=== PATIENT | female | born 1940 | race Caucasian/White ===

== ENCOUNTER 2020-11-13 11:10 | Observation (INO) | payer OTHER ==
--- OUTSIDE RECORDS SUMMARY | 2020-11-13 11:17 | XMS REPORT | Continuity of Care Document ---
:1940 Author Organization [facility] t Address [address] [place] [address] Care Team Providers Name Role Phone Martin Sears MD Primary Care Physician Problems Condition Condition Condition Status Onset Resolution Last Treating Co mments Source Name Details Category Date Date Treatment Clinician Date Status Status Disease Active [place] post total post total 7-03 Me thodi replacemen replacemen 00:00: st t of right t of right 00 hip hip Anemia Anemia Disease Active [place] associated associated 4-11 Me thodi with acute with acute 00:00: st blood loss blood loss 00 Primary Primary Disease Active [place] osteoarthr osteoarthr 3-23 Me thodi itis of itis of 00:00: st right hip right hip 00 Primary Primary Disease Active [place] osteoarthr osteoarthr 3-23 Me thodi itis of itis of 00:00: st right knee right knee 00 Right hip Right hip Disease Active Mia ston pain pain 2-19 Methodi 00:00: st 00 Chronic Chronic Disease Active [place] pain of pain of 2-19 Methodi right knee right knee 00:00: st 00 Cataract Cataract Disease Active [place] on 2-24 Methodi 00:00: st 00 Gastroesop Gastroesop Disease Active [place] hageal hageal 2-24 Methodi reflux reflux 00:00: st disease disease 00 Osteoporos Osteoporos Disease Active Overview : [place] is is 2-24 She Methodi 00:00: reports st 00 last dxa was about 5 years ago Edema of Edema of Disease Active [place] lower lower 2-24 Methodi extremity extremity 00:00: st 00 Vertigo Vertigo Disease Active [place] 9-04 Methodi 00:00: st 00 Hyperlipem Hyperlipem Disease Active H ming ia ia 04-11 Methodi 00:00: st Obstructiv Obstructiv Disease Active H ming e sleep e sleep 04-11 Methodi apnea apnea 00:00: st syndrome syndrome 00 Hearing Hearing Disease Active [place] loss loss 04-11 Methodi 00:00: st Essential Essential Disease Active Mia ston hypertensi hypertensi 04-11 Me thodi on on 00:00: st 00 Allergic Allergic Disease Active [place] rhinitis rhinitis 04-11 Method i 00:00: st 00 Ulcerative Ulcerative Disease Active H ming colitis colitis 04-11 Methodi 00:00: st 00 Allergies, Adverse Reactions, Alerts Allergy Allergy Status Severity Reaction(s) Onset Inactive Treating Comm ents Source Name Type Date Date Clinician Nazia Calvin Active Other (See vomiting H ming ty to Comments) 224 Methodi adverse 00:00: st reaction 00 s to drug Family History Family Member Diagnosis Comments Start Date Stop Date Source Natural father Heart disease [facility] Natural mother Cancer [facility] Social History Social Habit Start Date Stop Date Quantity Comments Source Sex Assigned At [facility] Tobacco use and 2018-07-02 2018-07-02 [facility]00 00:00:00 Alcohol intake 2018-07-02 2018-07-02 [facility] non-drinker of alcohol (finding) Tobacco Comment 2018-01-28 2018-01-28 smoked only for [facility] Jainism 00:00:00 00:00:00 1 year at younger age Smoking Status Start Date Stop Date Source Former smoker 2018-07-02 00:00:00 2018-07-02 00:00:00 [facility] Medications Ordered Filled Start Stop Current Ordering Indication Dosage Frequency Signature Comments Components Source Medication Medication Date Date Medication? Clinician (SIG) Name Name lisinopril Yes 40mg QD Take 40 mg H oudelia (PRINIVIL,Z 4-13 by mouth Meth leslye ESTRIL) 40 16:10: daily. st mg tablet 17 atorvastati 2018-0 Yes TK 1 T PO [place] n (LIPITOR) 3-10 QD Methodi 40 MG 00:00: st tablet 00 omeprazole Yes TK 1 C PO [place] (PriLOSEC) 2-01 QD 30 MIN Meth leslye 40 MG 00:00: B ZACHARY st capsule 00 metoprolol Yes TK 1 T PO Ho [place]viola succinate 1-09 QD Methodi XL 00:00: st (TOPROL-XL) 00 50 mg 24 hr tablet meclizine 2016-10 Yes TK 1 T PO Mia ston (ANTIVERT) 1-13 BID PRN Method i 25 mg 00:00: st tablet 00 hydrochloro Yes 25mg QD Take 25 mg [place] thiazide 4-25 by mouth Methodi (HYDRODIURI 00:00: daily. st L) 25 MG 00 tablet Immunizations Ordered Immunization Filled Immunization Date Status Commen ts Source Name Name Pneumococcal 2015-11-15 Completed [place] Conjugate 13-Valent 00:00:00 Metho dist Influenza, 2015-11-15 Completed [place] Quadrivalent 00:00:00 Jainism Influenza, 2014-10-02 Completed [place] Quadrivalent 00:00:00 Jainism Procedures This patient has no known procedures. Plan of Care Planned Activity Planned Date Details Comments Source Future Scheduled 2020-05-26 INFLUENZA VACCINE [place] [facility] Test 00:00:00 [code = INFLUENZA VACCINE] Future Scheduled 2016-11-15 65+ PNEUMOCOCCAL [place] [facility] Test 00:00:00 VACCINE (2 of 2 - PPSV23) [code = 65+ PNEUMOCOCCAL VACCINE (2 of 2 - PPSV23)] Future Scheduled 1991 SHINGLES VACCINES (#1) H ming [facility]ainism Test 00:00:00 [code = SHINGLES VACCINES (#1)] Future Scheduled 1957 COVID-19 VACCINE (1 of [place] [facility] Test 00:00:00 2) [code = COVID-19 VACCINE (1 of 2)] Results This patient has no known results.
--- OUTSIDE RECORDS SUMMARY | 2020-11-13 11:17 | XMS REPORT | Clinical Summary ---
:1940 Author Organization [facility] Address [address] [place] [address] Care Team Providers Name Role Phone Martin Sears MD Primary Care Provider Allergies Active Allergy Reactions Severity Noted Date Comments Codeine Other (See Comments) 12/19/2015 vomitin g Medications Medication Sig Dispensed Refills Start Date End Date Status hydrochlorothiazide Take 25 mg by 3 02/18/2016 Active (HYDRODIURIL) 25 MG tablet mouth daily. omeprazole (PriLOSEC) 40 MG TK 1 C PO QD 5 8 Active capsule 30 MIN B ZACHARY metoprolol succinate XL TK 1 T PO QD 5 11/03/2017 Active (TOPROL-XL) 50 mg 24 hr tablet meclizine (ANTIVERT) 25 mg TK 1 T PO BID 3 7 Active tablet PRN lisinopril Take 40 mg by 0 Activ e (PRINIVIL,ZESTRIL) 40 mg mouth daily. tablet atorvastatin (LIPITOR) 40 TK 1 T PO QD 3 01/02/2018 Active MG tablet Active Problems Problem Noted Date Status post total replacement of right hip 04/27/2018 Anemia associated with acute blood loss 02/03/2018 Primary osteoarthritis of right hip 01/15/2018 Primary osteoarthritis of right knee 01/15/2018 Right hip pain 12/14/2017 Chronic pain of right knee 12/14/2017 Cataract 12/19/2015 Gastroesophageal reflux disease 12/19/2015 Osteoporosis 12/19/2015 Overview: She reports last dxa was about 5 years a go Edema of lower extremity 12/19/2015 Vertigo 06/29/2014 Hyperlipemia 04/11/2014 Obstructive sleep apnea syndrome 04/11/2014 Hearing loss 04/11/2014 Essential hypertension 04/11/2014 Allergic rhinitis 04/11/2014 Ulcerative colitis 04/11/2014 Immunizations Name Administration Dates Next Due Influenza, Quadrivalent 11/15/2015, 10/02/2014 Pneumococcal Conjugate 13-Valent 11/15/2015 Surgical History Surgery Date Site/Laterality Comments OTHER SURGICAL HISTORY anesth no se/sinus surgery HYSTERECTOMY APPENDECTOMY HIP ARTHROPLASTY 10/26/2006 - Left 10/25/2007 JOINT REPLACEMENT 05/14/2015 left shoulder arthroplasty SHOULDER REPLACEMENT, 04/25/2016 - Left TOTAL, REVERSE 05/25/2016 ARTHROPLASTY, HIP, TOTAL 02/02/2018 Hip/Right Procedu re: RIGHT TOTAL HIP ARTHROPLASTY ; Surgeon: Jonathan Black MD; Loca tion: [facility] OR; Service: Orthopedics; La terality: Right; Medical devices from this surgery are in t he Implants section . Medical History Medical History Date Comments Essential hypertension 04/11/2014 Obstructive sleep apnea syndrome 04/11/2014 Allergic rhinitis 04/11/2014 Gastroesophageal reflux disease 12/19/2015 Osteoporosis 12/19/2015 She reports last dxa was about 5 years ago Hyperlipemia 04/11/2014 Allergic pets cause breathing problems Anxiety Visual impairment HL (hearing loss) Polyuria Arthritis Poor circulation Asthma allergy related Ulcerative colitis (HCC) 04/11/2014 Family History Medical History Relation Name Comments Heart disease Father Cancer Mother Relation Name Status Comments Father Mother Social History Tobacco Use Types Packs/Day Years Used Date Former Smoker Smokeless Tobacco: Never Used Comments: smoked only for 1 year at aftab kevin age Alcohol Use Drinks/Week oz/Week Comments No Sex Assigned at Date Recorded Not on file Last Filed Vital Signs Not on file Plan of Treatment Health Maintenance Due Date Last Done Comments COVID-19 VACCINE (1 of 2) 1957 SHINGLES VACCINES (#1) 1991 65+ PNEUMOCOCCAL VACCINE (2 of 2 - 11/15/2016 11/15/2015 PPSV23) INFLUENZA VACCINE 05/26/2020 11/15/2015, 11/15/2015, 10/02/2014, Additional history exists Implants Implanted Type Area [place] Boner Device Shelf Model / Identifier Expiration Serial / Lot Date Head [facility] 36mm Biolox Delta Option - [id number] Hip Joint N/A: [employer] 06/08/2027 [id number] / Implanted: Qty: 1 on 02/02/2018 by Leandro Black MD at [facility] Implants N/A / [id number] 3 Hole G7 [place] Acetabular Shell - [id number] IPM IMPLANT N/A: [employer] 09/25/2027 [id number] / Implanted: Qty: 1 on 02/02/2018 by Leandro Black MD at [facility] DEVICES N/A / [id number] Echo Bimetric Por Fem Red Lat Nc [id number] - [id number] [id number] IMPLANT N/A: [employer] 08/28/2027 [id number] / Implanted: Qty: 1 on 02/02/2018 by Leandro Black MD at [facility] DEVICES N/A / [id number] Cer Option Type 1 Tpr Sleve +3 - [id number] IPM IMPLANT N/A: [employer] 09/18/2027 [id number] / Implanted: Qty: 1 on 02/02/2018 by Leandro Black MD at [facility] DEVICES N/A / [id number] G7 Neutral E1 Liner 36mm E - [id number] IPM IMPLANT N/A: [employer] 09/03/2022 [id number] / Implanted: Qty: 1 on 02/03/2018 by Leandro Black MD at [facility] DEVICES N/A / [id number] Results Not on fileafter 11/13/2019 Insurance Payer Benefit Plan / Subscriber ID Effective Dates Phone Addre ss Type Group MEDICARE MEDICARE PART A [id number] 2006-Present [place], [place] Medicare [place] B Advance Directives For more information, please contact: [phone] Type Date Recorded Patient Tire Specialist Explanati on Advance Directives, Living Will 01/28/2018 12:55 PM and Medical Power of Concrete Mixer Operator Helper
--- NOTE | 2020-11-13 12:11 | RAD REPORT ---
EXAM DESCRIPTION: Hanna Single View11/13/2020 11:55 am CLINICAL HISTORY: Cough COMPARISON: 2016 FINDINGS: The right lung appears clear. An opacity is present overlying the left side of the heart which may represent a hiatal hernia or lef t basilar lung infiltrate. A PA and lateral chest series is recommended The heart is probably upper limits normal in size
[2020-11-13 12:24] LABS: Absolute Lymphocytes (CBC) 2.5 K/uL (0.7-4.9); Basophils % 0.5 % (0-1.3); Hematocrit 35.8 % (36.0-45.0); Lymphocytes % 31.7 % (15.3-44.8); MPV 9.5 fL (7.6-11.3); RBC Red Blood Cell Count 4.38 M/uL (3.86-4.86)
[2020-11-13 12:30] LABS: Protime INR 1.04
[2020-11-13 12:44] LABS: ALT/SGPT 21 U/L (12-78); AST/SGOT 26 U/L (15-37); Albumin 3.1 g/dL (3.4-5.0); Alkaline Phosphatase 132 U/L (45-117); BUN Blood Urea Nitrogen 17 mg/dL (7-18); Bicarbonate 29 mmol/L (21-32); Bilirubin Direct 0.2 mg/dL (0-0.2); Bilirubin Total 0.6 mg/dL (0.2-1.0); Glucose Level 80 mg/dL (74-106); Magnesium 2.2 mg/dL (1.8-2.4); NT PRO-BNP 723 pg/mL (<450); Potassium 3.2 mmol/L (3.5-5.1); Protein, Total 7.2 g/dL (6.4-8.2); Sodium Level 143 mmol/L (136-145); Troponin (Emerg Dept Use Only) < 0.02 ng/mL (0.0-0.045)
[2020-11-13] MEDS ORDERED: NA CHLORIDE 0.9% 1,000 ML ONE (12:44)
--- NOTE | 2020-11-13 13:59 | EDPHYS ---
Physician Documentation [facility] Name: Quita Mariee Age: 80 yrs Sex: Female : 1940 Arrival Date: 11/13/2020 Time: 11:12 Bed 8 Private MD: BRIANNA Physician Selvin Joy HPI: 11/13 13:51 This 80 yrs old Female presents to ER via Wheelchair with complaints of Wound guero Check. 13:51 Patient presents to ED for recheck of: cellulitis, laceration. The affected area is on guero the right leg and left leg. Previous treatment: Outpatient prescription(s): The patient was given prescription(s) for nothing. Progress: The patient reports increased drainage, fever, pain, redness, swelling. The patient has experienced similar episodes in the past, several times. Historical: - Allergies: 11:28 Codeine; ca1 - Home Meds: 15:18 atorvastatin 40 mg oral tab 1 tab once daily [Active]; hydrochlorothiazide 25 mg Oral iw tab 1 tab once daily [Active]; meclizine 25 mg Oral tab as needed [Active]; metoprolol tartrate 25 mg Oral tab 1 tab 2 times per day [Active]; - PMHx: 11:28 Hypertension; High Cholesterol; Colitis; ca1 - PSHx: 11:28 Hysterectomy; Appendectomy; Hip replacement; shoulder surgery; ca1 - Immunization history:: Adult Immunizations up to date, Pneumococcal vaccine is up to date, Flu vaccine is up to date. - Social history:: Smoking status: Patient denies any tobacco usage or history of. - Family history:: not pertinent. ROS: 13:51 Constitutional: Negative for fever, chills, and weight loss, Eyes: Negative for injury, guero pain, redness, and discharge, ENT: Negative for injury, pain, and discharge, Neck: Negative for injury, pain, and swelling, Cardiovascular: Negative for chest pain, palpitations, and edema, Respiratory: Negative for shortness of breath, cough, wheezing, and pleuritic chest pain, Abdomen/GI: Negative for abdominal pain, nausea, vomiting, diarrhea, and constipation, Back: Negative for injury and pain, : Negative for injury, bleeding, discharge, and swelling, Neuro: Negative for headache, weakness, numbness, tingling, and seizure, Psych: Negative for depression, anxiety, suicide ideation, homicidal ideation, and hallucinations, Allergy/Immunology: Negative for hives, rash, and allergies, Endocrine: Negative for neck swelling, polydipsia, polyuria, polyphagia, and marked weight changes. 13:51 MS/extremity: Positive for decreased range of motion, pain, swelling, tenderness, of the right leg and left leg. 13:51 Skin: Positive for swelling, of the right leg and left leg. Exam: 13:51 Constitutional: This is a well developed, well nourished patient who is awake, alert, guero and in no acute distress. Head/Face: Normocephalic, atraumatic. Eyes: Pupils equal round and reactive to light, extra-ocular motions intact. Lids and lashes normal. Conjunctiva and sclera are non-icteric and not injected. Cornea within normal limits. Periorbital areas with no swelling, redness, or edema. ENT: Nares patent. No nasal discharge, no septal abnormalities noted. Tympanic membranes are normal and external auditory canals are clear. Oropharynx with no redness, swelling, or masses, exudates, or evidence of obstruction, uvula midline. Mucous membranes moist. Neck: Trachea midline, no thyromegaly or masses palpated, and no cervical lymphadenopathy. Supple, full range of motion without nuchal rigidity, or vertebral point tenderness. No Meningismus. Chest/axilla: Normal chest wall appearance and motion. Nontender with no deformity. No lesions are appreciated. Cardiovascular: Regular rate and rhythm with a normal S1 and S2. No gallops, murmurs, or rubs. Normal PMI, no JVD. No pulse deficits. Respiratory: Lungs have equal breath sounds bilaterally, clear to auscultation and percussion. No rales, rhonchi or wheezes noted. No increased work of breathing, no retractions or nasal flaring. Abdomen/GI: Soft, non-tender, with normal bowel sounds. No distension or tympany. No guarding or rebound. No evidence of tenderness throughout. Back: No spinal tenderness. No costovertebral tenderness. Full range of motion. Skin: Warm, dry with normal turgor. Normal color with no rashes, no lesions, and no evidence of cellulitis. Neuro: Awake and alert, GCS 15, oriented to person, place, time, and situation. Cranial nerves II-XII grossly intact. Motor strength 5/5 in all extremities. Sensory grossly intact. Cerebellar exam normal. Normal gait. Psych: Awake, alert, with orientation to person, place and time. Behavior, mood, and affect are within normal limits. 13:51 Musculoskeletal/extremity: ROM: intact in all extremities, full active range of motion, Circulation is intact in all extremities. Sensation intact. Compartment Syndrome exam of affected extremity: is normal. Joints: All joints appear normal with full range of motion. DVT Exam: pain, swelling, tenderness, erythema, increased warmth, that is mild, that is moderate, of the right leg, of the right ankle, lateral aspect of right foot, right sena, anterior aspect of right ankle and dorsum of right foot. 13:59 ECG was reviewed by the Attending Physician. [facility] Vital Signs: 11:24 BP 136 / 70; Pulse 61; Resp 16 S; Temp 97.6(TE); Pulse Ox 100% on R/A; Weight 77.11 kg ca1 (R); Height 5 ft. 4 in. (162.56 cm) (R); 14:40 BP 150 / 53; Pulse 72; Resp 15; Pulse Ox 100% ; jl7 15:25 BP 138 / 89; Pulse 89; Resp 18 S; Pulse Ox 96% on R/A; iw 11:24 Body Mass Index 29.18 (77.11 kg, 162.56 cm) ca1 MDM: 11:30 Patient medically screened. [facility] 13:51 Differential diagnosis: cellulitis. Data reviewed: vital signs, nurses notes, lab test [facility] result(s), EKG, radiologic studies, doppler, plain films. Data interpreted: patient monitor: rate is 61 beats/min, rhythm is regular, Pulse oximetry: on room air is 100 %. Test interpretation: by ED physician or midlevel provider: ECG, plain radiologic studies. Counseling: I had a detailed discussion with the patient and/or guardian regarding: the historical points, exam findings, and any diagnostic results supporting the discharge/admit diagnosis, the presence of at least one elevated blood pressure reading (>120/80) during this emergency department visit, lab results, radiology results, the need for further work-up and treatment in the hospital. 11/13 11:31 Order name: Basic Metabolic Panel; Complete Time: 13:48 guero 11/13 11:31 Order name: CBC with Diff; Complete Time: 13:48 [facility] 11/13 11:31 Order name: LFT's; Complete Time: 13:48 [facility] 11/13 11:31 Order name: Magnesium; Complete Time: 13:48 [facility] 11/13 11:31 Order name: NT PRO-BNP; Complete Time: 13:48 [facility] 11/13 11:31 Order name: PT-INR; Complete Time: 13:48 [facility] 11/13 11:31 Order name: Troponin (emerg Dept Use Only); Complete Time: 13:48 [facility] 11/13 11:31 Order name: Blood Culture Adult (2) [facility] 11/13 11:31 Order name: Lactate; Complete Time: 13:48 [facility] 11/13 14:55 Order name: SARS-COV-2 RT PCR [facility] 11/13 15:29 Order name: Basic Metabolic Panel [facility] 11/13 15:29 Order name: Basic Metabolic Panel [facility] 11/13 15:29 Order name: CBC with Automated Diff [facility] 11/13 11:31 Order name: XRAY Chest (1 view); Complete Time: 13:48 [facility] 11/13 11:31 Order name: EKG; Complete Time: 11:32 [facility] 11/13 11:31 Order name: Cardiac monitoring; Complete Time: 11:39 [facility] 11/13 11:31 Order name: EKG - Nurse/Tech; Complete Time: 11:39 [facility] 11/13 11:48 Order name: Diet Heart Healthy; Complete Time: 11:49 [facility] 11/13 11:57 Order name: NPO [facility] 11/13 13:51 Order name: US Extremity Venous W Compression Dhaval [facility] 11/13 15:25 Order name: CONS Physician Consult [facility] 11/13 15:29 Order name: Physical Therapy Consult [facility] 11/13 15:29 Order name: CBC with Automated Diff [facility] 11/13 15:29 Order name: Magnesium [facility] 11/13 15:29 Order name: Magnesium [facility] 11/13 15:45 Order name: Chest Pa And Lat (2 Views) [facility] 11/13 11:31 Order name: IV Saline Lock; Complete Time: 12:17 [facility] 11/13 11:31 Order name: Labs collected and sent; Complete Time: 12:17 [facility] 11/13 11:31 Order name: O2 Per Protocol; Complete Time: 11:40 [facility] 11/13 11:31 Order name: O2 Sat Monitoring; Complete Time: 11:40 guero EC:59 Rate is 61 beats/min. Rhythm is regular. QRS [place] is Normal. VA interval is normal. QRS guero interval is normal. QT interval is normal. No Q waves. T waves are Normal. No ST changes noted. Clinical impression: NSR w/ Non-specific ST/T Changes and No evidence of ischemia. Interpreted by me. Reviewed by me. Administered Medications: 12:35 Drug: NS 0.9% 1000 ml Route: IV; Rate: 125 ml/hr; Site: left hand; iw 17:22 Follow up: IV Status: Infusion continued upon admission jl7 15:14 Drug: Zosyn 3.375 grams Route: IVPB; Infused Over: 60 mins; Site: left hand; iw 16:15 Follow up: Response: No adverse reaction; IV Status: Completed infusion jl7 16:58 Drug: vancoMYCIN 1 grams Route: IVPB; Infused Over: 2 hrs; Site: left hand; iw 19:45 Follow up: IV Status: Completed infusion; IV Intake: 250ml rv Disposition: 11/13/20 13:59 Hospitalization ordered by Gonzalo Wasserman for Inpatient Admission. Preliminary diagnosis are Cellulitis and acute lymphangitis of other parts of limb, Edema, unspecified, Hypokalemia. - Bed requested for Telemetry/MedSurg (Inpatient). - Status is Inpatient Admission. rv - Condition is Stable. - Problem is new. - Symptoms have improved. Signatures: Dispatcher [employer] EDMS Kassandra Mendoza Diana, RN RN dw Anderson, Corey, MD MD cha Williams, Irene RN LAWSON Abbe Conrad RN RN rv Acob, Cheryl, RN RN [facility] Hieu Duque RN jl7 Corrections: (The following items were deleted from the chart) 13:56 12:44 CORONAVIRUS+MR.LAB.BRZ ordered. EDOK EDMS 14:03 13:59 Hospitalization Ordered by Gonzalo Wasserman MD for Inpatient Admission. Preliminary guero diagnosis is Cellulitis and acute lymphangitis of other parts of limb; Edema, unspecified. Bed requested for Telemetry/MedSurg (Inpatient). Status is Inpatient Admission. Condition is Stable. Problem is new. Symptoms have improved. guero 18:52 14:03 11/13/2020 13:59 Hospitalization Ordered by Gonzalo Wasserman MD for Inpatient bd Admission. Preliminary diagnosis is Cellulitis and acute lymphangitis of other parts of limb; Edema, unspecified; Hypokalemia. Bed requested for Telemetry/MedSurg (Inpatient). Status is Inpatient Admission. Condition is Stable. Problem is new. Symptoms have improved. guero 19:55 18:52 11/13/2020 13:59 Hospitalization Ordered by Gonzalo Wasserman MD for Inpatient dw Admission. Preliminary diagnosis is Cellulitis and acute lymphangitis of other parts of limb; Edema, unspecified; Hypokalemia. Bed requested for [facility] ER HOLD. Status is Inpatient Admission. Condition is Stable. Problem is new. Symptoms have improved. bd 20:33 19:55 11/13/2020 13:59 Hospitalization Ordered by Gonzalo Wasserman MD for Inpatient rv Admission. Preliminary diagnosis is Cellulitis and acute lymphangitis of other parts of limb; Edema, unspecified; Hypokalemia. Bed requested for Telemetry/MedSurg (Inpatient). Status is Inpatient Admission. Condition is Stable. Problem is new. Symptoms have improved. dw
--- NOTE | 2020-11-13 13:59 | ER ---
Nurse's Notes [facility] Name: Quita Mariee Age: 80 yrs Sex: Female : 1940 Arrival Date: 11/13/2020 Time: 11:12 Bed 8 Private MD: Diagnosis: Cellulitis and acute lymphangitis of other parts of limb;Edema, unspecified;Hypokalemia Presentation: 11/13 11:24 Chief complaint: Patient states: Was at wound healing today and Dr. James sent me ca1 here cause my R foot/leg wound is infected. Denies fever. Coronavirus screen: Client denies travel out of the [place] in the last 14 days. At this time, the client does not indicate any symptoms associated with coronavirus-19. Ebola Screen: Patient negative for fever greater than or equal to 101.5 degrees Fahrenheit, and additional compatible Ebola Virus Disease symptoms Patient denies exposure to infectious person. Patient denies travel to an Ebola-affected area in the 21 days before illness onset. No symptoms or risks identified at this time. Initial Sepsis Screen: Does the patient meet any 2 criteria? No. Patient's initial sepsis screen is negative. Does the patient have a suspected source of infection? No. Patient's initial sepsis screen is negative. Risk Assessment: Do you want to hurt yourself or someone else? Patient reports no desire to harm self or others. Onset of symptoms was November 13, 2020. 11:24 Method Of Arrival: Wheelchair ca1 11:24 Acuity: YESSENIA 3 ca1 Historical: - Allergies: 11:28 Codeine; ca1 - Home Meds: 15:18 atorvastatin 40 mg oral tab 1 tab once daily [Active]; hydrochlorothiazide 25 mg Oral iw tab 1 tab once daily [Active]; meclizine 25 mg Oral tab as needed [Active]; metoprolol tartrate 25 mg Oral tab 1 tab 2 times per day [Active]; - PMHx: 11:28 Hypertension; High Cholesterol; Colitis; ca1 - PSHx: 11:28 Hysterectomy; Appendectomy; Hip replacement; shoulder surgery; ca1 - Immunization history:: Adult Immunizations up to date, Pneumococcal vaccine is up to date, Flu vaccine is up to date. - Social history:: Smoking status: Patient denies any tobacco usage or history of. - Family history:: not pertinent. Screenin:17 Abuse screen: Denies threats or abuse. Denies injuries from another. Nutritional iw screening: No deficits noted. Tuberculosis screening: No symptoms or risk factors identified. Fall Risk IV access (20 points). Assessment: 12:24 General: Appears in no apparent distress. Behavior is calm, cooperative. Pain: iw Complains of pain in anterior aspect of right ankle and dorsum of right foot Pain currently is 4 out of 10 on a pain scale. Neuro: Level of Consciousness is awake, alert, obeys commands, Oriented to person, place, time, situation, Moves all extremities. Cardiovascular: Patient's skin is warm and dry. Respiratory: Respiratory effort is even, unlabored, Respiratory pattern is regular, symmetrical. GI: Abdomen is non-distended. Derm: Skin is fragile, is thin, Wound noted right sena, anterior aspect of right ankle and dorsum of right foot. Musculoskeletal: Range of motion: intact in all extremities, pt uses walker to ambulate at home. 13:30 Reassessment: Patient appears in no apparent distress at this time. pt up to bedside iw commode with assistance, small amount of diarrhea noted, has hx of colitis and chronic diarrhea. 15:25 Reassessment: Patient appears in no apparent distress at this time. Patient and/or iw family updated on plan of care and expected duration. Pain level reassessed. Patient is alert, oriented x 3, equal unlabored respirations, skin warm/dry/pink. Dr. Wassermna has assessed pt, awaiting admit orders. Vital Signs: 11:24 BP 136 / 70; Pulse 61; Resp 16 S; Temp 97.6(TE); Pulse Ox 100% on R/A; Weight 77.11 kg ca1 (R); Height 5 ft. 4 in. (162.56 cm) (R); 14:40 BP 150 / 53; Pulse 72; Resp 15; Pulse Ox 100% ; jl7 15:25 BP 138 / 89; Pulse 89; Resp 18 S; Pulse Ox 96% on R/A; iw 11:24 Body Mass Index 29.18 (77.11 kg, 162.56 cm) ca1 ED Course: 11:12 Patient arrived in ED. ag5 11:26 Triage completed. ca1 11:28 Arm band placed on right wrist. ca1 11:30 Selvin Joy MD is Attending Physician. guero 11:34 Hieu Duque, RN is Primary Nurse. jl7 11:53 XRAY Chest (1 view) In Process Unspecified. EDMS 12:17 Initial lab(s) drawn, by me, sent to lab. Inserted saline lock: 22 gauge in left iw antecubital area, using aseptic technique. Blood collected. 12:38 Cecelia Ozuna, RN is Primary Nurse. jl7 13:57 Gonzalo Wasserman MD is Hospitalizing Provider. guero 15:02 US Extremity Venous W Compression Dhaval In Process Unspecified. EDMS 20:32 No provider procedures requiring assistance completed. IV is patent, with fluids rv infusing freely, Patient admitted, IV remains in place. 20:33 Patient has correct armband on for positive identification. rv Administered Medications: 12:35 Drug: NS 0.9% 1000 ml Route: IV; Rate: 125 ml/hr; Site: left hand; iw 17:22 Follow up: IV Status: Infusion continued upon admission jl7 15:14 Drug: Zosyn 3.375 grams Route: IVPB; Infused Over: 60 mins; Site: left hand; iw 16:15 Follow up: Response: No adverse reaction; IV Status: Completed infusion jl7 16:58 Drug: vancoMYCIN 1 grams Route: IVPB; Infused Over: 2 hrs; Site: left hand; iw 19:45 Follow up: IV Status: Completed infusion; IV Intake: 250ml rv Intake: 19:45 IV: 250ml; Total: 250ml. rv Outcome: 13:59 Decision to Hospitalize by Provider. guero 20:32 Admitted to Med/surg accompanied by tech, via stretcher, room 231, Other SBAR, Report rv called to SHIVAM RN 20:32 Condition: good 20:32 Instructed on the need for admit. 20:33 Patient left the ED. rv Signatures: Dispatcher [employer] EDSelvin Alvarado MD MD cha Williams, Irene, LAWSON PATHAK Hieu Duque, RN RN jl7 Abbe Conrad RN RN rv Acob, Cheryl, RN RN ca1 Gaskin, Ajare 5
[2020-11-13] MEDS ORDERED: PIPER/TAZO/NS 3.375gm 3.375 GM/100 ML BAG ONE (14:39)
[2020-11-13] MEDS ORDERED: VANCOMYCIN/NS 1 gm 1 GM/250 ML BAG IVPB ONE ×2 (15:00→16:00)
[2020-11-13] MEDS ORDERED: ONDANSETRON 4 MG/2 ML VIAL IV PRN (15:25)
--- NOTE | 2020-11-13 15:34 | P.HP ---
Certification for Inpatient Patient admitted to: Observation With expected LOS: <2 Midnights Practitioner: I am a practitioner with admitting privileges, knowledge of patient current condition, hospital course, and medical plan of care. Services: Services provided to patient in accordance with Admission requirements found in Title 42 Section 412.3 of the Code of Federal Regulations Patient History Date of Service: 11/13/20 Reason for admission: RLE Cellulitis and venous stasis ulcers History of Present Illness: 80yo F, PMH: HTN, HLD, h/o colitis, was sent to ED by her surgeon, Dr. James for evaluation in ED of RLE cellulitis and need for surgical debridement of venous stasis ulcers. Patient reports she has been having this redness and slight pain off and on over the past 2 weeks. She reports a h/o b/l leg swelling which she takes HCTZ and wears b/l stockings. She has not been fully compliant with her stockings for some time and noticed her swelling worsened. She then started to notice breaks in her skin and has been seen at the wound care clinic. She denies any fevers/chills, no nausea/vomiting, no abdominal pain, no bleeding. Workup in ED revealed rather unremarkable lab work. Notable for mild anemia which appears chronic and mildly elevated BNP, negative DVT study Allergies codeine Adverse Reaction (Verified 06/11/16 10:41) Nausea/Vomiting Home Medications: Atorvastatin Calcium [Lipitor] 40 mg PO DAILY 06/11/16 Fluticasone [Flonase 50mcg Nasal [place]] 2 sprays NS DAILY 06/11/16 Lisinopril [Zestril] 40 mg PO DAILY 06/11/16 Loratadine [Claritin*] 10 tab PO DAILY 06/11/16 Pantoprazole [Protonix Tab*] 40 mg PO DAILY 06/11/16 Tramadol HCl/Acetaminophen [Ultracet Tablet] 1 each PO Q4H PRN #30 tablet 06/11/16 hydroCHLOROthiazide [Hydrochlorothiazide] 25 mg PO DAILY 06/11/16 - Past Medical/Surgical History Diabetic: No -: HTN -: HLD -: h/o colitis -: Hysterectomy -: Hx Bilateral hip replacements -: Hx Left shoulder replacement -: Appendectomy - Family History Family History: Reviewed- Non-Contributory - Social History Smoking Status: Never smoker Alcohol use: No Place of Residence: Home (next door / with daughter) Review of Systems 10-point ROS is otherwise unremarkable Physical Examination - Studies Laboratory Data (last 24 hrs) 11/13/20 12:12: PT 12.3, INR 1.04 11/13/20 12:12: WBC 7.8, Hgb 11.4 L, Hct 35.8 L, Plt Count 222 11/13/20 12:12: Sodium 143, Potassium 3.2 L, BUN 17, Creatinine 0.59, Glucose 80, Magnesium 2.2, Total Bilirubin 0.6, AST 26, ALT 21, Alkaline Phosphatase 132 H Assessment and Plan - Advance Directives Does patient have a Living Will: No Does patient have a Durable POA for Healthcare: No Physician Review Additional Text: Physical Exam: Gen: NAD, alert HEENT: normal conjunctiva, PERRL Neck: no JVD CV: RRR, +3/6 systolic murmur Pulm: CTAB, no wheeze/rales/rhonchi Abd: soft, NTND Ext: RLE: venous stasis ulcers, +erythema from mid lower leg down to foot, +warmth compared to surrounding skin, no appreciable abscess Neuro: AAOx3, no focal defect Psych: pleasant, cooperative Problem List: RLE Cellulitis Venous stasis ulcers HTN HLD -does not meet SIRS / sepsis criteria -bring patient in for obs -will treat cellulitis with IV Ancef, no recent hospitalizations, no increased risk for MRSA -general surgery consulted for venous stasis ulcers - for debridement tomorrow -continue HCTZ -NPO after midnight -VTE prophylaxis with Heparin for now -obtain and continue home medications as appropriate VTE: Heparin Code: Full Dispo: anticipate dc in 24-48hrs, likely back home, pending surgical debridement. may benefit from home health Time Spent Managing Pts Care (In Minutes): 60
--- NOTE | 2020-11-13 15:43 | RAD REPORT ---
EXAM DESCRIPTION: US - Extrem Venous W Compress Dhaval - 11/13/2020 3:02 pm CLINICAL HISTORY: Pain;Swelling, both legs COMPARISON: None. TECHNIQUE: Real-time sonographic evaluation of the bilateral lower extremity common femoral, superfi cial femoral, popliteal and posterior tibial veins was performed. FINDINGS: Normal compressibility, flow augmentation, phasic flow and spontaneous flow are identified in the left and right lower extremity common femoral, superficial femoral, popliteal and posterior t ibial veins. No intraluminal filling defects seen. A 2 centimeter left groin lymph node is present probably reactive. IMPRESSION: No DVT in either lower extremity. Left groin 2 centimeter lymph node. This is probably reactive but can be monitored with follow-up son ography as clinical findings warrant.
[2020-11-13] MEDS: HEPARIN 5000 UNIT/ML 1 ML VIAL SQ SCH (17:00)
[2020-11-13] MEDS ORDERED: CEFAZOLIN/SWI 2gm 2 GM/20 ML SYR IVP SCH (17:00)
[2020-11-13] MEDS: Meropenem 1,000 MG in NA CHLORIDE 0.9% 100 ML IV SCH (17:00)
[2020-11-13] MEDS ORDERED: Meropenem 1000 MG/VIAL IV SCH (17:00)
[2020-11-13] MEDS ORDERED: PIPER/TAZO/NS 3.375gm 3.375 GM/100 ML BAG IVPB SCH (17:00)
[2020-11-13] MEDS ORDERED: CEFAZOLIN 2 GM in NA CHLORIDE 0.9% 100 ML IVPB SCH (17:00)
--- NOTE | 2020-11-13 17:41 | RAD REPORT ---
EXAM DESCRIPTION: RAD - Chest Pa And Lat (2 Views) - 11/13/2020 4:41 pm CLINICAL HISTORY: eval L lower lobe opacity vs hiatal hernia COMPARISON: Portable November 13 TECHNIQUE: Frontal and lateral views of the chest were obtained. FINDINGS: The lungs are fibrotic but clear of a peripheral mass or consolidation. Diaphragm is flat tened. A hiatal hernia is not identified. However, the focal density in the medial left base is no lo nger present. This is most likely summation artifact of overlapping soft tissues. Heart size is leah l and central vasculature is within normal limits. No pleural effusion or pneumothorax seen. No acu te bony finding noted. No aortic abnormality. IMPRESSION: Medial left base density seen on the portable study does not persist on two view imaging . Extensive interstitial lung disease is again noted.
[2020-11-13] MEDS ORDERED: HEPARIN 5000 UNIT/ML 1 ML VIAL ONE (20:01)
[2020-11-13] MEDS ORDERED: LORazepam 2 MG/ML VIAL ONE (21:17)
[2020-11-13 22:26] VITALS: BMI 28.0
[2020-11-13] MEDS: ACETAMINOPHEN 500 MG TAB PO PRN (22:55)
[2020-11-13] MEDS ORDERED: POTASSIUM CL SA 10 MEQ TAB PO ONE (23:49)
[2020-11-14] MEDS: HEPARIN 5000 UNIT/ML 1 ML VIAL SQ SCH ×3 (00:09→17:07)
[2020-11-14] MEDS: Meropenem 1,000 MG in NA CHLORIDE 0.9% 100 ML IV SCH ×4 (00:54→17:07)
[2020-11-14] MEDS: ACETAMINOPHEN 500 MG TAB PO PRN (04:50)
[2020-11-14] MEDS ORDERED: INFLUENZA VACCINE (for 3y+) 0.5 ML DOSE IMVAC ONE (06:00)
[2020-11-14 06:35] LABS: Absolute Lymphocytes (CBC) 2.4 K/uL (0.7-4.9); Basophils % 0.4 % (0-1.3); Hematocrit 30.5 % (36.0-45.0); Lymphocytes % 34.6 % (15.3-44.8); MPV 9.2 fL (7.6-11.3); RBC Red Blood Cell Count 3.74 M/uL (3.86-4.86)
[2020-11-14 06:54] LABS: BUN Blood Urea Nitrogen 16 mg/dL (7-18); Bicarbonate 28 mmol/L (21-32); Glucose Level 90 mg/dL (74-106); Magnesium 2.1 mg/dL (1.8-2.4); Phosphorus 3.1 mg/dL (2.5-4.9); Potassium 3.4 mmol/L (3.5-5.1); Sodium Level 144 mmol/L (136-145)
[2020-11-14 07:20] LABS: Blood Morphology Comment NOT SEEN (NOT SEEN); Platelet Estimate ADEQ; White Blood Cell Scan OK (OK)
[2020-11-14] MEDS ORDERED: POTASSIUM CL SA 10 MEQ TAB PO ONE (07:49)
[2020-11-14] MEDS ORDERED: Ringers Lactate 1,000 ML IV ONE (08:14)
[2020-11-14] MEDS ORDERED: PNEUMOCOCCAL VACCINE 0.5 ML IMVAC ONE (09:00)
[2020-11-14] MEDS ORDERED: propofoL 200 MG/20 ML VIAL IV ONE (09:04)
[2020-11-14] MEDS ORDERED: FENTANYL CITR 100 MCG/2 ML ONE (09:05)
[2020-11-14] MEDS ORDERED: LIDOCAINE 2% MPF 5 ML VIAL ONE (09:05)
[2020-11-14] MEDS ORDERED: MIDAZOLAM HCL 2 MG/2 ML INJ ONE (09:05)
[2020-11-14] MEDS ORDERED: ONDANSETRON 4 MG/2 ML VIAL ONE (09:06)
[2020-11-14] MEDS ORDERED: dexAMETHasone 10 MG/ML VIAL ONE (09:40)
--- NOTE | 2020-11-14 09:43 | P.BOP ---
Preoperative diagnosis: cellulitis, infected venous stasis ulcer right lower extremity ( leg and fo Postoperative diagnosis: same Primary procedure: Excisional subQ debridement of : 1. Medial anterior leg 4x2.5cm Secondary procedure: 2. Prox ant leg 2x2cm, 3. distal leg 4x2.5 cm, 4. lateral distal foot 2x2cm Other procedure(s): 5. Right foot 2x2cm Estimated blood loss: <10cc Specimen: culture Findings: as above Anesthesia: General
[2020-11-14] MEDS ORDERED: EPHEDRINE SULF 50 MG/ML VIAL ONE (09:47)
[2020-11-14] MEDS ORDERED: COLLAGENASE 30 GM OINTMENT TOP ONE (09:55)
--- NOTE | 2020-11-14 10:12 | OP ---
Date of Procedure: 11/14/2020 Surgeon: Stanford James MD Preoperative Diagnosis: Cellulitis, infected venous stasis ulcer, right lower extremity including le g and foot. Postoperative Diagnosis: Cellulitis, infected venous stasis ulcer, right lower extremity including l eg and foot. Procedures: 1.Excisional subcutaneous debridement of medial anterior leg, 4 x 2.5 cm. 2.Excisional subcutaneous debridement of a proximal anterior leg, 2 x 2 cm. 3.Excision subcutaneous debridement of distal leg, 4 x 2.5 cm. 4.Excisional subcutaneous debridement of the lateral distal foot, 2 x 2 cm. 5.Excision of subcutaneous debridement of the right foot, 2 x 2 cm. Anesthesia: General plus local. Complications: None. Wound Care: Santyl gauze. Indication: This is a case of a 80-year-old patient comes to us with cellulitis of the right lower e xtremity, admitted to the hospital for IV antibiotics and also booked in surgery for debridement. Th e areas are tender, so she wants to have it done under some anesthetic. Benefits, alternatives, and risks of excisional debridement fully explained which include, but not limited to infection, bleeding , damage to adjacent structures, anesthesia complication, nonhealing wound, IN, and . She also understands this may not relieve her symptoms. She might need more than one surgical intervention. She understands the importance of following up with the [facility], also taking care of her vein dis ease, compression treatment, and all those things that will be just given up on discharge. She under stands the importance of also to keep coming [facility] for continuation of care. S he understood, signed the consent. Description Of Procedure: Patient was brought to the operating room, placed in supine position. Ane sthesia was done without complication. Time-out was called. Right leg was prepped and draped in a s terile fashion. Local anesthesia was applied. Then, I proceeded to do subcutaneous debridement with the help of blade, help of a curette, and hemostasis was obtained with Bovie cauterizer. We did all these 5 areas individually. Hemostasis obtained. Necrotic tissue was removed. The area was cultur ed. Patient tolerated the procedure well. We cover the area with sterile dressings. Patient sent t o recovery in stable condition. SALUD/DEIDRE Voice ID: [id number] Report ID: [id number]
[2020-11-14] MEDS ORDERED: HYDROMORPHONE HCL 1 MG/ML INJ ONE (10:21)
[2020-11-14] MEDS: TRAMADOL 37.5mg/APAP 325mg PER TAB PO PRN ×2 (10:58→21:15)
[2020-11-14] MEDS: hydroCHLOROthiazide 25 MG TAB PO SCH (10:59)
--- NOTE | 2020-11-14 12:13 | EKG ---
Test Date: 2020-11-13 Test Time: 11:43:06 [place]: HUGH MEASUREMENT RESULTS: Intervals: Rate: 61 [place]: 222 QRSD: 116 QT: 450 QTc: 453 [place]: P: 78 [place]: 222 QRS: -1 T: 67 INTERPRETIVE STATEMENTS: Sinus rhythm with 1st degree AV block Left ventricular hypertrophy with QRS widening and repolarization abnormality Abnormal ECG Compared to ECG 06/11/2016 09:14:11 Left ventricular hypertrophy now present Early repolarization now present Prolonged QT interval no longer present Electronically Signed On 11-14-20 12:10:43 VAT WASHER by Rodney Mcnamara
[2020-11-14] MEDS: VANCOMYCIN 1.5 GM in NA CHLORIDE 0.9% 500 ML IVPB SCH (12:38)
--- NOTE | 2020-11-14 20:44 | P.PN ---
Subjective Date of Service: 11/14/20 Chief Complaint: RLE Cellulitis and venous stasis ulcers Subjective: No new changes (feels swelling has improved slightly this morning, continues with some leg pain. to go to surgery today) Review of Systems 10-point ROS is otherwise unremarkable Physical Examination - Vital Signs Temperature: 97.7 F Blood Pressure: 120/58 Pulse: 70 Respirations: 16 Pulse Ox (%): 97 - Studies Microbiology Data (last 24 hrs): 11/13/20 12:30 Blood - Blood Anaerobic Blood Culture - Final Assessment & Plan Physician Review Additional Text: Physical Exam: Gen: NAD, alert Neck: no JVD CV: RRR, +3/6 systolic murmur Pulm: CTAB, no wheeze/rales/rhonchi Abd: soft, NTND Ext: RLE: venous stasis ulcers, +erythema from mid lower leg down to foot, +warmth compared to surrounding skin, no appreciable abscess Problem List: RLE Cellulitis Venous stasis ulcers HTN HLD -does not meet SIRS / sepsis criteria -discussed with general surgery and ID - on broad spectrum abx coverage for now -to go to OR for debridement today -erythema about the same as yesterday -will continue to monitor patient throughout today -continue HCTZ -VTE prophylaxis with Heparin for now -ID consulted for further antibiotic recommendations anticipate dc home tomorrow, awaiting cultures from surgery as well VTE: Heparin Code: Full Dispo: anticipate dc in 24hrs, likely back home, pending surgical debridement. may benefit from home health Time Spent Managing Pts Care (In Minutes): 35
[2020-11-14] MEDS: JUVEN PACKET PO SCH (21:15)
[2020-11-15] MEDS: Meropenem 1,000 MG in NA CHLORIDE 0.9% 100 ML IV SCH ×2 (00:50→09:21)
[2020-11-15] MEDS: HEPARIN 5000 UNIT/ML 1 ML VIAL SQ SCH ×2 (00:51→09:22)
[2020-11-15] MEDS: VANCOMYCIN 1.5 GM in NA CHLORIDE 0.9% 500 ML IVPB SCH (05:15)
[2020-11-15 06:18] LABS: Absolute Lymphocytes (CBC) 1.6 K/uL (0.7-4.9); Basophils % 0.1 % (0-1.3); Hematocrit 31.1 % (36.0-45.0); Lymphocytes % 19.3 % (15.3-44.8); MPV 9.6 fL (7.6-11.3); RBC Red Blood Cell Count 3.85 M/uL (3.86-4.86)
[2020-11-15 06:31] LABS: BUN Blood Urea Nitrogen 14 mg/dL (7-18); Bicarbonate 29 mmol/L (21-32); Glucose Level 114 mg/dL (74-106); Potassium 4.2 mmol/L (3.5-5.1); Sodium Level 140 mmol/L (136-145)
[2020-11-15] MEDS: hydroCHLOROthiazide 25 MG TAB PO SCH (09:22)
[2020-11-15] MEDS: MECLIZINE HCL 12.5 MG TAB PO PRN ×2 (09:33→15:06)
[2020-11-15] MEDS: JUVEN PACKET PO SCH (09:33)
[2020-11-15 10:47] VITALS: TEMP 98.6
[2020-11-15 10:52] VITALS: O2SAT 97
[2020-11-15 12:50] VITALS: BP 124/59
--- NOTE | 2020-11-15 13:41 | P.DS ---
Admission Date: 11/13/20 Discharge Date: 11/15/20 Disposition: DC HOME/HOME HEALTH CARE Discharge Condition: GOOD Reason for Admission: RLE Cellulitis and venous stasis ulcers Consultations: General Surgery - Dr. James ID - Dr. Barfield Procedures: Surgical Debridement by Dr. James (11/14): 1. Excisional subcutaneous debridement of medial anterior leg, 4 x 2.5 cm. 2. Excisional subcutaneous debridement of a proximal anterior leg, 2 x 2 cm. 3. Excision subcutaneous debridement of distal leg, 4 x 2.5 cm. 4. Excisional subcutaneous debridement of the lateral distal foot, 2 x 2 cm. 5. Excision of subcutaneous debridement of the right foot, 2 x 2 cm. Problem List: RLE Cellulitis Venous stasis ulcers HTN HLD Brief History of Present Illness: 80yo F, PMH: HTN, HLD, h/o colitis, was sent to ED by her surgeon, Dr. James for evaluation in ED of RLE cellulitis and need for surgical debridement of venous stasis ulcers. Patient reports she has been having this redness and slight pain off and on over the past 2 weeks. She reports a h/o b/l leg swelling which she takes HCTZ and wears b/l stockings. She has not been fully compliant with her stockings for some time and noticed her swelling worsened. She then started to notice breaks in her skin and has been seen at the wound care clinic. She denies any fevers/chills, no nausea/vomiting, no abdominal pain, no bleeding. Workup in ED revealed rather unremarkable lab work. Notable for mild anemia which appears chronic and mildly elevated BNP, negative DVT study Hospital Course: Patient was taken to the OR by general surgery for debridement of her venous stasis ulcers. She was empirically covered with antibiotics. She had improvement of her erythema / cellulitis. ID was consulted and recommended doxycycline on discharge. Patient improved and was feeling better. She was discharged home with home health and physical therapy. She is to apply Santyl daily to her ulcers and follow up with Dr. James in the wound care clinic. Vital Signs/Physical Exam: Temp Pulse Resp BP Pulse Ox 98.6 F 69 18 124/59 L 97 11/15/20 12:00 11/15/20 12:00 11/15/20 12:00 11/15/20 12:00 11/15/20 12:00 Physical Exam: Gen: NAD, alert Neck: no JVD CV: RRR, +3/6 systolic murmur Pulm: CTAB, no wheeze/rales/rhonchi Abd: soft, NTND Ext: RLE: venous stasis ulcers, +improved erythema from mid lower leg down to foot, +slight warmth compared to surrounding skin, no appreciable abscess, s/p debridement Laboratory Data at Discharge: WBC 8.4 K/uL (4.3-10.9) D 11/15/20 05:53 Hgb 10.1 g/dL (12.0-15.0) L 11/15/20 05:53 Hct 31.1 % (36.0-45.0) L 11/15/20 05:53 Plt Count 198 K/uL (152-406) D 11/15/20 05:53 PT 12.3 SECONDS (9.5-12.5) 11/13/20 12:12 INR 1.04 11/13/20 12:12 Sodium 140 mmol/L (136-145) 11/15/20 05:53 Potassium 4.2 mmol/L (3.5-5.1) 11/15/20 05:53 BUN 14 mg/dL (7-18) 11/15/20 05:53 Creatinine 0.49 mg/dL (0.55-1.3) L 11/15/20 05:53 Glucose 114 mg/dL (74-106) H 11/15/20 05:53 Phosphorus 3.1 mg/dL (2.5-4.9) 11/14/20 06:00 Magnesium 2.1 mg/dL (1.8-2.4) 11/14/20 06:00 Total Bilirubin 0.6 mg/dL (0.2-1.0) 11/13/20 12:12 AST 26 U/L (15-37) 11/13/20 12:12 ALT 21 U/L (12-78) 11/13/20 12:12 Alkaline Phosphatase 132 U/L (45-117) H 11/13/20 12:12 Home Medications: Atorvastatin Calcium [Lipitor] 1 tab PO DAILY 11/13/20 Meclizine HCl 1 tab PO Q4HP PRN 11/13/20 Metoprolol Tartrate 1 tab PO BID 11/13/20 hydroCHLOROthiazide [Hydrochlorothiazide] 1 tab PO DAILY 11/13/20 Collagenase [Santyl Ointment] 30 appl TOP DAILY #1 tube 11/15/20 Doxycycline Hyclate 100 mg PO BID 10 Days #20 tablet 11/15/20 New Medications: Doxycycline Hyclate 100 mg PO BID 10 Days #20 tablet Collagenase [Santyl Ointment] 30 appl TOP DAILY #1 tube Patient Discharge Instructions: you were diagnosed with celllulitis of your right lower leg. You are discharged with 10 days of doxycycline. Please follow up with Dr. Jamse in the wound clinic this coming Thursday, 11/20. Please call to schedule appointment. Continue with Santyl and dry gauze to leg wounds daily. Home health and home physical therapy have been arranged. Diet: AHA Activity: Ad radha (fall precautions) Followup: Stanford James MD [Primary Care Provider] - Time spent managing pt's care (in minutes): 45
== END 2020-11-15 15:52 | disposition home health service (06) ==
LOC: ER 11:10 → ERHOLD 15:47 → 2ND 20:23
PROVIDERS: ADMIT Hospitalist; ATTEND Hospitalist
PROC: 0JBN0ZZ Excision of Right Lower Leg Subcutaneous Tissue and Fascia, Open Approach (ICD-10-PCS; 2020-11-14)
PROC: 0JBQ0ZZ Excision of Right Foot Subcutaneous Tissue and Fascia, Open Approach (ICD-10-PCS; principal; 2020-11-14 08:30)
DX: L03.115 Cellulitis of right lower limb (principal); I83.012 Varicose veins of right lower extremity with ulcer of calf; L97.219 Non-pressure chronic ulcer of right calf with unspecified severity; I83.015 Varicose veins of right lower extremity with ulcer other part of foot; L97.519 Non-pressure chronic ulcer of other part of right foot with unspecified severity; I10 Essential (primary) hypertension; Z20.822 Contact with and (suspected) exposure to COVID-19; Z96.612 Presence of left artificial shoulder joint; E78.5 Hyperlipidemia, unspecified; Z96.643 Presence of artificial hip joint, bilateral; G47.30 Sleep apnea, unspecified; R94.31 Abnormal electrocardiogram [ECG] [EKG]; D64.9 Anemia, unspecified
CPT/HCPCS: 96365; 96367; 96361; 93005; 87040 ×2; 87070 ×2; 85025 ×3; 80048 ×3; 36415 ×2; 83735 ×2; 87205 ×2; 84100; 84132; 85610; 80076; 83605; 87075; 87077 ×3; 87186 ×3; 84484; 83880; 71045; 71046; 90471 ×2; 93970; 97116; 97161; 97530 ×2; 94010; 94760 ×4; 99285; 96366; 11042; 11045; U0003; J2704; J1644 ×4; J2250; J3010; J3370 ×2; J2543; J1100; J2185 ×3; J1170; J7120; J7040; J7030; J2405 ×2; G0378; J0690; J3590